=== PATIENT | female | born 1975 | race African-American/Black ===

== ENCOUNTER 2022-04-18 20:30 | Emergency (ER) | payer OTHER ==
[~2022-04-18] VITALS: Ht 175.3 cm; Wt 125.0 kg
[2022-04-18] MEDS ORDERED: ALBUTEROL SULF 2.5 MG/0.5ML(0.5%) NEB SOLN NEB ONE ×2 (20:45→21:15)
[2022-04-18] MEDS ORDERED: IPRATROPIUM BROM 0.5 MG/2.5ML INH SOL NEB ONE ×2 (20:45→21:15)
[2022-04-18] MEDS ORDERED: methylPREDNISolone SOD SUCC 125 MG/2 ML VL IV ONE (21:15)
[2022-04-19] MEDS ORDERED: ALBU108A5 IN (00:09)
[2022-04-19] MEDS ORDERED: PRED20TA2 PO (00:09)
[2022-04-19 01:14] VITALS: BP 136/91
== END 2022-04-19 01:16 | disposition home or self-care (01) ==
LOC: ER 20:30
DX: J45.901 Unspecified asthma with (acute) exacerbation (principal)
CPT/HCPCS: 71045; 93005; 94640; 94644; 96374; 99285; J2930; J7644